=== PATIENT | female | born 1975 | race Caucasian/White ===

== ENCOUNTER 2017-01-25 21:27 | Emergency (ER) | payer BC ==
[2017-01-25] MEDS ORDERED: Sodium Chloride 0.9% 1,000 ML IV SCH (21:45)
[2017-01-25] MEDS ORDERED: Acetaminophen/Butalbital/Caffeine 325-50-40 MG Tab PO PRN (23:12)
[2017-01-25] MEDS ORDERED: Ondansetron 4 MG/2 ML SDV IVPUSH PRN (23:13)
[2017-01-25] MEDS ORDERED: Dexamethasone 4 MG/ML SDV IVPUSH ONE (23:15)
[2017-01-25] MEDS ORDERED: Diazepam 5 MG Tab PO ONE (23:19)
--- NOTE | 2017-01-26 00:17 | EDM.PDOC ---
ED HPI GENERAL MEDICAL PROBLEM - General Chief Complaint: Headache Stated Complaint: FEEL STRANGE, FATIGUE Time Seen by Provider: 01/25/17 21:45 Source of Information: Reports: Patient, Family History Limitations: Reports: No Limitations - History of Present Illness INITIAL COMMENTS - FREE TEXT/NARRATIVE: Patient is a 41 year old woman who has a history of Hemiplegic Migraines with neurological symptoms and 2 cerebral aneurysms that are being watched by her neurologists in [place]. Today she has developed a hemiplegic migraine with slurred speech and some weakness. She is supposed to come in for evaluation and treatment when these occur and that is why she is here. No fever or chills and no other complaints. Onset: Today Onset Date: 01/25/17 Onset Time: 18:00 Duration: Hour(s): (2), Getting Worse Location: Reports: Head Quality: Reports: Ache, Same as Previous Episode, Throbbing Severity: Severe Improves with: Reports: Other (Quiet and low light.) Worsens with: Reports: None Context: Reports: Other (History of migraines and cerebral aneurysms.) Associated Symptoms: Reports: No Other Symptoms headache Pain Score (Numeric/FACES): 10 - Related Data Allergies Allergy/AdvReac Type Severity Reaction Status Date / Time morphine Allergy Vomiting Verified 01/25/17 21:40 Penicillins Allergy Other Verified 01/25/17 21:40 tioconazole Allergy Other Verified 01/25/17 21:40 [From Monistat 1 (tioconazole)] venom-honey bee Allergy Airway Verified 01/25/17 21:40 [bee venom (honey bee)] Tightness Home Meds: Home Meds Aspirin [Children's Aspirin] 162 mg PO DAILY 01/04/14 [History] Topiramate [Topamax] 100 mg PO BID 01/04/14 [History] rOPINIRole HCl [Ropinirole HCl] 4 mg PO BEDTIME 01/04/14 [History] ALPRAZolam [Alprazolam] 0.5 mg PO DAILY PRN 11/11/15 [History] Furosemide 20 mg PO DAILY PRN 11/11/15 [History] Phentermine HCl 37.5 mg PO DAILY 11/11/15 [History] Naratriptan HCl [Amerge] 2.5 mg PO DAILY PRN 01/25/17 [History] Ondansetron [Zofran] 4 mg PO Q6H PRN 01/25/17 [History] metFORMIN [Glucophage] 500 mg PO BID 01/25/17 [History] Past Medical History HEENT History: Reports: Impaired Vision Respiratory History: Reports: Asthma Gastrointestinal History: Reports: Cholelithiasis [employer] History: Reports: Musculoskeletal History: Reports: Arthritis, Other (See Below) Other Musculoskeletal History: arthritis bilat knees Neurological History: Reports: Cerebral Aneurysms, Migraines, TIA Other Neuro History: TIA x 2 Psychiatric History: Reports: Anxiety, Bipolar, Dementia, PTSD Endocrine/Metabolic History: Reports: Diabetes, Type II, Obesity/BMI 30+ Other Endocrine/Metabolic History: borderline diabetic Hematologic History: Reports: Other (See Below) Other Hematologic History: fibrinogen disorder, plasmongeic activator inhibitor Oncologic (Cancer) History: Reports: Cervix, Uterine, Other (See Below) Other Oncologic History: CA gallbladder Dermatologic History: Reports: Other (See Below) Other Dermatologic History: 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 - Infectious Disease History Infectious Disease History: Reports: Chicken Pox, Influenza, Shingles - Past Surgical History HEENT Surgical History: Reports: Oral Surgery, Tonsillectomy GI Surgical History: Reports: Cholecystectomy, Hernia Repair/Other Female Surgical History: Reports: Breast Reduction, Hysterectomy, Other (See Below) Social & Family History - Family History Family Medical History: Unobtainable - Tobacco Use Smoking Status *Q: Current Every Day Smoker Years of Tobacco use: 30 Packs/Tins Daily: 0.5 - Caffeine Use Caffeine Use: Reports: Coffee, Tea - Alcohol Use Days Per Week of Alcohol Use: 0 - Recreational Drug Use Recreational Drug Use: No ED ROS GENERAL - Review of Systems Review Of Systems: See Below Constitutional: Reports: No Symptoms HEENT: Reports: Other (Slurred speech.) Respiratory: Reports: No Symptoms Cardiovascular: Reports: No Symptoms Endocrine: Reports: No Symptoms GI/Abdominal: Reports: No Symptoms : Reports: No Symptoms Musculoskeletal: Reports: No Symptoms Skin: Reports: No Symptoms Neurological: Reports: Trouble Speaking, Weakness Psychiatric: Reports: No Symptoms Hematologic/Lymphatic: Reports: No Symptoms Immunologic: Reports: No Symptoms - Physical Exam Exam: See Below Exam Limited By: No Limitations General Appearance: Alert, WD/WN, No Apparent Distress Eye Exam: Bilateral Eye: EOMI, Normal Fundi, Normal Inspection, PERRL Ears: Normal External Exam, Normal Canal, Hearing Grossly Normal, Normal TMs Nose: Normal Inspection, Normal Mucosa, No Blood Throat/Mouth: Normal Inspection, Normal Lips, Normal Teeth, Normal Gums, Normal Oropharynx, Normal Voice, No Airway Compromise Head Exam: Atraumatic, Normocephalic Neck: Normal Inspection, Supple, Non-Tender, Full Range of Motion Respiratory/Chest: No Respiratory Distress, Lungs Clear, Normal Breath Sounds, No Accessory Muscle Use, Chest Non-Tender Cardiovascular: Normal Peripheral Pulses, Regular Rate, Rhythm, No Edema, No Gallop, No JVD, No Murmur, No Rub GI/Abdominal: Normal Bowel Sounds, Soft, Non-Tender, No Organomegaly, No Distention, No Abnormal Bruit, No Mass Neuro Exam (Abbreviated): Alert DTR: 4+: Patella (R), Patella (L) Back Exam: Normal Inspection, Full Range of Motion, NT Extremities: Normal Inspection, Normal Range of Motion, Non-Tender, No Pedal Edema, Normal Capillary Refill Psychiatric: Normal Affect, Normal Mood Skin Exam: Warm, Dry, Intact, Normal Color, No Rash Course - Vital Signs Text/Narrative:: Uneventful ED course. 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 These quickly brought her pain from a 9/10 level to 4/10. She will go home with one 5 mg Valium to help her sleep if needed. She will continue all of her other medications and will follow up with [facility] as planned or prn if needed. Last Recorded V/S: Last Vital Signs Temp 36.5 C 01/25/17 21:27 Pulse 86 01/25/17 21:27 Resp 18 01/25/17 21:27 BP 135/64 01/25/17 21:27 Pulse Ox 98 01/25/17 21:27 - Orders/Labs/Meds Orders: Active Orders 24 hr Category Date Time Status Head wo Cont [CT] Stat Exams 01/25/17 21:43 Taken Acetaminophen/Butalbital/Caff [Fioricet 325-50-40 MG] Med 01/25/17 23:12 Active 2 tab PO Q6H PRN Ondansetron [Zofran] Med 01/25/17 23:13 Active 4 mg IVPUSH Q4H PRN Sodium Chloride 0.9% [Normal Saline] 1,000 ml Med 01/25/17 21:45 Active IV ASDIRECTED Medication Orders Acetaminophen/Butalbital/Caffeine (Fioricet 325-50-40 Mg) 2 tab PO Q6H PRN PRN Reason: Headache/Pain Last Admin: 01/25/17 23:44 Dose: 2 tab Sodium Chloride (Normal Saline) 1,000 mls @ 150 mls/hr IV ASDIRECTED SELMA Last Admin: 01/25/17 22:15 Dose: 150 mls/hr Ondansetron HCl (Zofran) 4 mg IVPUSH Q4H PRN PRN Reason: Nausea/Vomiting Last Admin: 01/25/17 23:40 Dose: 4 mg Labs: Laboratory Tests 01/25/17 01/25/17 01/25/17 Range/Units 21:50 21:50 21:50 WBC 7.3 (4.5-12.0) X10-3/uL RBC 4.62 (3.23-5.20) x10(6)uL Hgb 14.6 (11.5-15.5) g/dL Hct 42.1 (30.0-51.3) % MCV 91.2 (80-96) fL MCH 31.5 (27.7-33.6) pg MCHC 34.5 (32.2-35.4) g/dL RDW 12.5 (11.5-15.5) % Plt Count 238 (125-369) X10(3)uL MPV 7.2 L (7.4-10.4) fL Neut % (Auto) 69.4 (46-82) % Lymph % (Auto) 21.7 (13-37) % Robeson % (Auto) 5.8 (4-12) % Eos % (Auto) 3 (1.0-5.0) % Baso % (Auto) 0 (0-2) % Neut # (Auto) 5.1 (1.6-8.3) # Lymph # (Auto) 1.6 (0.6-5.0) # Robeson # (Auto) 0.4 (0.0-1.3) # Eos # (Auto) 0.2 (0.0-0.8) # Baso # (Auto) 0.0 (0.0-0.2) # PT 11.0 (8.7-11.1) INR 1.09 (0.89-1.13) Sodium 136 (135-145) mmol/L Potassium 3.7 (3.5-5.3) mmol/L Chloride 102 (100-110) mmol/L Carbon Dioxide 25 (23-29) mmol/L BUN 12 (5-20) mg/dL Creatinine 0.7 (0.6-1.3) mg/dL Est Cr Clr Drug Dosing 93.25 mL/min Estimated GFR (MDRD) > 60 (>60) BUN/Creatinine Ratio 17.1 (9-20) Glucose 143 H (80-116) mg/dL Calcium 9.1 (8.6-10.2) mg/dL Total Bilirubin 0.6 (0.1-1.3) mg/dL AST 18 (5-27) IU/L ALT 20 D (14-26) IU/L Alkaline Phosphatase 51 L (56-112) IU/L Total Protein 6.5 (6.0-8.0) g/dL Albumin 3.8 (3.5-5.2) g/dL Globulin 2.7 g/dL Albumin/Globulin Ratio 1.4 Meds: Medications Generic Name Dose Route Start Last Admin Trade Name Freq PRN Reason Stop Dose Admin Acetaminophen/Butalbital/Caffeine 2 tab 01/25/17 23:12 01/25/17 23:44 Fioricet 325-50-40 Mg PO 2 tab Q6H PRN Administration Headache/Pain Sodium Chloride 1,000 mls @ 150 mls/hr 01/25/17 21:45 01/25/17 22:15 Normal Saline IV 150 mls/hr ASDIRECTED SELAM Administration Ondansetron HCl 4 mg 01/25/17 23:13 01/25/17 23:40 Zofran IVPUSH 4 mg Q4H PRN Administration Nausea/Vomiting Discontinued Medications Generic Name Dose Route Start Last Admin Trade Name Freq PRN Reason Stop Dose Admin Dexamethasone 8 mg 01/25/17 23:15 01/25/17 23:36 Dexamethasone IVPUSH 01/25/17 23:16 8 mg ONETIME ONE Administration Diazepam 5 mg 01/25/17 23:01/25/17 23:40 Valium. PO 01/25/17 23:20 5 mg ONETIME ONE Administration Departure - Departure Time of Disposition: 00:21 Disposition: Home, Self-Care 01 Condition: Good Clinical Impression: Hemiplegic migraine - Discharge Information Referrals: Jessica Steel, PROFESS[employer] [Primary Care Provider] - - My Orders Last 24 Hours: My Active Orders 01/25/17 21:43 Head wo Cont [CT] Stat 01/25/17 21:45 Sodium Chloride 0.9% [Normal Saline] 1,000 ml IV ASDIRECTED 01/25/17 23:12 Acetaminophen/Butalbital/Caff [Fioricet 325-50-40 MG] 2 tab PO Q6H PRN 01/25/17 23:13 Ondansetron [Zofran] 4 mg IVPUSH Q4H PRN - Assessment/Plan Last 24 Hours: My Active Orders 01/25/17 21:43 Head wo Cont [CT] Stat 01/25/17 21:45 Sodium Chloride 0.9% [Normal Saline] 1,000 ml IV ASDIRECTED 01/25/17 23:12 Acetaminophen/Butalbital/Caff [Fioricet 325-50-40 MG] 2 tab PO Q6H PRN 01/25/17 23:13 Ondansetron [Zofran] 4 mg IVPUSH Q4H PRN
[2017-01-26] MEDS ORDERED: Diazepam 5 MG Tab ONE (00:22)
[2017-01-26] MEDS ORDERED: Diazepam 5 MG Tab PO PRN (00:24)
[2017-01-26 00:50] VITALS: BP 122/51
== END 2017-01-26 00:25 | disposition home or self-care (01) ==
LOC: FB.ED 21:27
DX: G43.409 Hemiplegic migraine, not intractable, without status migrainosus (principal); F17.210 Nicotine dependence, cigarettes, uncomplicated; E11.9 Type 2 diabetes mellitus without complications; J45.909 Unspecified asthma, uncomplicated; Z79.84 Long term (current) use of oral hypoglycemic drugs; Z79.82 Long term (current) use of aspirin; Z79.899 Other long term (current) drug therapy; Z88.0 Allergy status to penicillin; Z88.5 Allergy status to narcotic agent; Z91.030 Bee allergy status
CPT/HCPCS: 36415; 70450; 80053; 85025; 85610; 96361; 96374; 96375; 99284; A9270; J1100; J2405; J7040

== ENCOUNTER 2017-12-04 17:30 | Emergency (ER) | payer BC ==
--- NOTE | 2017-12-04 18:38 | EDM.PDOC ---
ED HPI GENERAL MEDICAL PROBLEM - General Chief Complaint: Lower Extremity Injury/Pain Stated Complaint: SWOLLEN FOOT Time Seen by Provider: 12/04/17 17:40 Source of Information: Reports: Patient History Limitations: Reports: No Limitations - History of Present Illness INITIAL COMMENTS - FREE TEXT/NARRATIVE: eMlissa comes into [facility] ED for inspection of a L foot injury that occurred 3 days ago when she turned her foot accidentally. There is residual pain and stiffness along the lateral margin of the midfoot. There is minor swelling. She has taken Tylenol for sxs relief. - Related Data Allergies Allergy/AdvReac Type Severity Reaction Status Date / Time morphine Allergy Vomiting Verified 12/04/17 17:53 Penicillins Allergy Other Verified 12/04/17 17:53 tioconazole Allergy Other Verified 12/04/17 17:53 [From Monistat 1 (tioconazole)] venom-honey bee Allergy Airway Verified 12/04/17 17:53 [bee venom (honey bee)] Tightness Home Meds: Home Meds Aspirin [Children's Aspirin] 162 mg PO DAILY 01/04/14 [History] rOPINIRole HCl [Ropinirole HCl] 4 mg PO BEDTIME 01/04/14 [History] ALPRAZolam [Alprazolam] 0.5 mg PO DAILY PRN 11/11/15 [History] Furosemide 20 mg PO DAILY PRN 11/11/15 [History] Ondansetron [Zofran] 4 mg PO Q6H PRN 01/25/17 [History] metFORMIN [Glucophage] 500 mg PO BID 01/25/17 [History] Ketorolac [Toradol] 60 mg IM ASDIRECTED PRN 12/04/17 [History] Liraglutide [Victoza] 0.6 mg SQ DAILY 12/04/17 [History] Past Medical History HEENT History: Reports: Impaired Vision Respiratory History: Reports: Asthma Gastrointestinal History: Reports: Cholelithiasis [employer] History: Reports: Musculoskeletal History: Reports: Arthritis, Other (See Below) Other Musculoskeletal History: arthritis bilat knees Neurological History: Reports: Cerebral Aneurysms, Migraines, TIA Other Neuro History: TIA x 2 Psychiatric History: Reports: Anxiety, Bipolar, Dementia, PTSD Endocrine/Metabolic History: Reports: Diabetes, Type II, Obesity/BMI 30+ Other Endocrine/Metabolic History: borderline diabetic Hematologic History: Reports: Other (See Below) Other Hematologic History: fibrinogen disorder, plasmongeic activator inhibitor Oncologic (Cancer) History: Reports: Cervix, Uterine, Other (See Below) Other Oncologic History: CA gallbladder Dermatologic History: Reports: Other (See Below) Other Dermatologic History: 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 ED EXAM, GENERAL - Physical Exam Exam: See Below Exam Limited By: No Limitations General Appearance: Alert, WD/WN, No Apparent Distress, Obese Head: Atraumatic, Normocephalic Neck: Normal Inspection, Supple, Non-Tender Respiratory/Chest: Lungs Clear Cardiovascular: Regular Rate, Rhythm Back Exam: Normal Inspection Extremities: Limited Range of Motion (L midfoot along lateral margin with some tenderness and minor swelling, no discoloration) Neurological: Alert, Oriented, CN II-XII Intact, Normal Cognition Psychiatric: Normal Affect, Normal Mood Skin Exam: Warm, Dry, Intact Lymphatic: No Adenopathy Course - Vital Signs Text/Narrative:: I reviewed x rays of L foot, no fx deformity seen. - Orders/Labs/Meds Orders: Active Orders 24 hr Category Date Time Status Foot Comp Min 3V Lt [CR] Stat Exams 12/04/17 17:41 Ordered Departure - Departure Time of Disposition: 18:05 Disposition: Home, Self-Care 01 Condition: Fair Clinical Impression: Sprain of left foot Qualifiers: Encounter type: initial encounter Qualified Code(s): S93.602A - Unspecified sprain of left foot, initial encounter - Discharge Information *PRESCRIPTION DRUG MONITORING PROGRAM REVIEWED*: Not Applicable *COPY OF PRESCRIPTION DRUG MONITORING REPORT IN PATIENT SIRISHA: Not Applicable Instructions: Foot Sprain, Elastic Bandage and RICE Referrals: Jessica Steel NP [Primary Care Provider] - Forms: ED Department Discharge Care Plan Goals: FOLLOW UP WITH REGULAR - Problem List & Annotations (1) Sprain of left foot SNOMED Code(s): 11435394 Code(s): S93.602A - UNSPECIFIED SPRAIN OF LEFT FOOT, INITIAL ENCOUNTER Status: Acute Current Visit: Yes Annotation/Comment:: She may wrap the L foot for comfort, RICE, analgesic of choice, and a cane if needed for heel wt bearing. Qualifiers: Encounter type: initial encounter Qualified Code(s): S93.602A - Unspecified sprain of left foot, initial encounter - Problem List Review Problem List Initiated/Reviewed/Updated: Yes - My Orders Last 24 Hours: My Active Orders 12/04/17 17:41 Foot Comp Min 3V Lt [CR] Stat - Assessment/Plan Last 24 Hours: My Active Orders 12/04/17 17:41 Foot Comp Min 3V Lt [CR] Stat Plan: Follow up with PCP if needed.
--- NOTE | 2017-12-06 15:06 | CR ---
INDICATION: Injury. Pain and swelling. LEFT FOOT, THREE VIEWS: FINDINGS: No comparison imaging. As visualized, no fracture or dislocation are shown. IMPRESSION: Negative study. If symptoms persist, consider either followup radiographs or, if necessary, MRI for further evaluation. CARLOSD
== END 2017-12-04 18:30 | disposition home or self-care (01) ==
LOC: FB.ED 17:30
DX: S93.602A Unspecified sprain of left foot, initial encounter (principal); E11.9 Type 2 diabetes mellitus without complications; E66.9 Obesity, unspecified; Z88.0 Allergy status to penicillin; Z88.1 Allergy status to other antibiotic agents; Z79.82 Long term (current) use of aspirin; Z79.899 Other long term (current) drug therapy; Z79.84 Long term (current) use of oral hypoglycemic drugs; X50.9XXA Other and unspecified overexertion or strenuous movements or postures, initial encounter
CPT/HCPCS: 73630-LT; 99283

== ENCOUNTER 2018-05-27 08:46 | Emergency (ER) | payer BC ==
[2018-05-27] MEDS ORDERED: Sodium Chloride 0.9% 10 ML Syringe FLUSH PRN (09:13)
[2018-05-27] MEDS ORDERED: HYDROmorphone 2 MG/ML SDV IVPUSH ONE ×2 (09:14→10:23)
[2018-05-27] MEDS ORDERED: Ondansetron 4 MG/2 ML SDV IVPUSH ONE (09:15)
[2018-05-27] MEDS ORDERED: Pantoprazole 40 MG Vial IVPUSH ONE (09:15)
[2018-05-27] MEDS ORDERED: Sodium Chloride 0.9% 1,000 ML IV ONE (09:15)
--- NOTE | 2018-05-27 09:22 | EDM.PDOC ---
ED HPI GENERAL MEDICAL PROBLEM - General Chief Complaint: Abdominal Pain Stated Complaint: STOMACH PAIN Time Seen by Provider: 05/27/18 09:18 Source of Information: Reports: Patient History Limitations: Reports: No Limitations - History of Present Illness INITIAL COMMENTS - FREE TEXT/NARRATIVE: Presents with generalized abdominal pain, onset 8 hours ago associated with N/ V. Has not had a BM in 1 week. History of SBO @ 1 year ago. Previous surgical history consists of 14 hernia repairs, hysterectomy, cholecystectomy, tubal ligation and bladder repair. 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) abdomen Pain Score (Numeric/FACES): 10 - Related Data Allergies Allergy/AdvReac Type Severity Reaction Status Date / Time morphine Allergy Vomiting Verified 05/27/18 09:10 Penicillins Allergy Other Verified 05/27/18 09:10 tioconazole Allergy Other Verified 05/27/18 09:10 [From Monistat 1 (tioconazole)] venom-honey bee Allergy Airway Verified 05/27/18 09:10 [bee venom (honey bee)] Tightness Home Meds: Home Meds Aspirin [Children's Aspirin] 162 mg PO DAILY 01/04/14 [History] rOPINIRole HCl [Ropinirole HCl] 4 mg PO BEDTIME 01/04/14 [History] ALPRAZolam [Alprazolam] 0.5 mg PO DAILY PRN 11/11/15 [History] Furosemide 20 mg PO DAILY PRN 11/11/15 [History] Ondansetron [Zofran] 4 mg PO Q6H PRN 01/25/17 [History] metFORMIN [Glucophage] 500 mg PO BID 01/25/17 [History] Ketorolac [Toradol] 60 mg IM ASDIRECTED PRN 12/04/17 [History] Liraglutide [Victoza] 0.6 mg SQ DAILY 12/04/17 [History] Erenumab-Aooe [Aimovig Autoinjector (2 Pack)] 140 mg IM Q30D 02/08/18 [History] Past Medical History HEENT History: Reports: Impaired Vision Cardiovascular History: Denies: CAD Respiratory History: Reports: Asthma Gastrointestinal History: Reports: Bowel Obstruction Musculoskeletal History: Reports: Arthritis, Other (See Below) Other Musculoskeletal History: arthritis bilat knees Neurological History: Reports: Cerebral Aneurysms, Migraines, TIA Other Neuro History: TIA x 2 Psychiatric History: Reports: Anxiety, Bipolar, Dementia, PTSD Endocrine/Metabolic History: Reports: Diabetes, Type II, Obesity/BMI 30+ Other Endocrine/Metabolic History: borderline diabetic Hematologic History: Reports: Other (See Below) Other Hematologic History: fibrinogen disorder, plasmongeic activator inhibitor Oncologic (Cancer) History: Reports: Cervix, Uterine, Other (See Below) Other Oncologic History: CA gallbladder Dermatologic History: Reports: Other (See Below) 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 Denies: Appendectomy Female Surgical History: Reports: Breast Reduction, Hysterectomy, Tubal Ligation Social & Family History - Family History Family Medical History: Unobtainable - Tobacco Use Smoking Status *Q: Current Every Day Smoker Tobacco Use Within Last Twelve Months: Cigarettes - Caffeine Use Caffeine Use: Reports: Coffee, Tea - Alcohol Use Alcohol Use History: No ED ROS GENERAL - Review of Systems Review Of Systems: ROS reveals no pertinent complaints other than HPI. ED EXAM, GI/ABD - Physical Exam Exam: See Below Exam Limited By: No Limitations General Appearance: Alert, WD/WN, No Apparent Distress Ears: Normal External Exam Nose: Normal Inspection Throat/Mouth: No Airway Compromise Head: Atraumatic, Normocephalic Neck: Supple Respiratory/Chest: No Respiratory Distress, Lungs Clear, Normal Breath Sounds Cardiovascular: Regular Rate, Rhythm, No Murmur GI/Abdominal Exam: No Distention, Tender (moderate generalized), Abnormal Bowel Sounds (hypoactive) Back Exam: Full Range of Motion Extremities: Normal Range of Motion Neurological: Alert, No Motor/Sensory Deficits Psychiatric: Normal Affect Skin Exam: Warm, Dry, Intact Course - Vital Signs Last Recorded V/S: Last Vital Signs Temp 36.9 C 05/27/18 08:50 Pulse 82 05/27/18 08:50 Resp 16 05/27/18 08:50 BP 150/68 H 05/27/18 08:50 Pulse Ox 95 05/27/18 08:50 - Orders/Labs/Meds Orders: Active Orders 24 hr Category Date Time Status Abdomen Pelvis w Cont [CT] Stat Exams 05/27/18 09:16 Taken UA W/MICROSCOPIC [URIN] Stat Lab 05/27/18 10:27 Received Diatrizoate Jessie/Diatrizoate Na [Gastrografin 37%] Med 05/27/18 10:15 Active 30 ml PO . DIRECTED Sodium Chloride 0.9% [Saline Flush] Med 05/27/18 09:13 Active 10 ml FLUSH ASDIRECTED PRN Saline Lock Insert [OM.PC] Routine Oth 05/27/18 09:13 Ordered Medication Orders Diatrizoate Meglum/Diatrizoate Sod (Gastrografin 37%) 30 ml PO . DIRECTED SELMA Last Admin: 05/27/18 10:45 Dose: 30 ml Sodium Chloride (Saline Flush) 10 ml FLUSH ASDIRECTED PRN PRN Reason: Keep Vein Open Last Admin: 05/27/18 09:30 Dose: 10 ml Labs: Laboratory Tests 05/27/18 05/27/18 05/27/18 Range/Units 09:51 09:51 09:51 WBC 11.8 (4.5-12.0) X10-3/uL RBC 5.21 H (3.23-5.20) x10(6)uL Hgb 16.9 H (11.5-15.5) g/dL Hct 48.1 (30.0-51.3) % MCV 92.3 (80-96) fL MCH 32.3 (27.7-33.6) pg MCHC 35.0 (32.2-35.4) g/dL RDW 12.0 (11.5-15.5) % Plt Count 224 (125-369) X10(3)uL MPV 7.5 (7.4-10.4) fL Add Manual Diff Yes Neutrophils % (Manual) 83 H (46-82) % Lymphocytes % (Manual) 10 L (13-37) % Monocytes % (Manual) 7 (4-12) % PT 10.2 (8.7-11.1) INR 1.05 (0.89-1.13) Sodium 137 (135-145) mmol/L Potassium 4.6 (3.5-5.3) mmol/L Chloride 101 (100-110) mmol/L Carbon Dioxide 27 (21-32) mmol/L BUN 14 (7-18) mg/dL Creatinine 0.7 (0.55-1.02) mg/dL Est Cr Clr Drug Dosing TNP Estimated GFR (MDRD) > 60 (>60) BUN/Creatinine Ratio 20.0 (9-20) Glucose 161 H (80-116) mg/dL Calcium 9.1 (8.6-10.2) mg/dL Total Bilirubin 0.5 (0.1-1.3) mg/dL AST 12 (5-25) IU/L ALT 26 (12-36) U/L Alkaline Phosphatase 68 (56-112) IU/L Total Protein 6.8 (6.0-8.0) g/dL Albumin 3.6 (3.5-5.2) g/dL Globulin 3.2 g/dL Albumin/Globulin Ratio 1.1 Amylase (25-115) U/L 05/27/18 Range/Units 09:51 WBC (4.5-12.0) X10-3/uL RBC (3.23-5.20) x10(6)uL Hgb (11.5-15.5) g/dL Hct (30.0-51.3) % MCV (80-96) fL MCH (27.7-33.6) pg MCHC (32.2-35.4) g/dL RDW (11.5-15.5) % Plt Count (125-369) X10(3)uL MPV (7.4-10.4) fL Add Manual Diff Neutrophils % (Manual) (46-82) % Lymphocytes % (Manual) (13-37) % Monocytes % (Manual) (4-12) % PT (8.7-11.1) INR (0.89-1.13) Sodium (135-145) mmol/L Potassium (3.5-5.3) mmol/L Chloride (100-110) mmol/L Carbon Dioxide (21-32) mmol/L BUN (7-18) mg/dL Creatinine (0.55-1.02) mg/dL Est Cr Clr Drug Dosing Estimated GFR (MDRD) (>60) BUN/Creatinine Ratio (9-20) Glucose (80-116) mg/dL Calcium (8.6-10.2) mg/dL Total Bilirubin (0.1-1.3) mg/dL AST (5-25) IU/L ALT (12-36) U/L Alkaline Phosphatase (56-112) IU/L Total Protein (6.0-8.0) g/dL Albumin (3.5-5.2) g/dL Globulin g/dL Albumin/Globulin Ratio Amylase 16 L (25-115) U/L Meds: Medications Generic Name Dose Route Start Last Admin Trade Name Freq PRN Reason Stop Dose Admin Diatrizoate Meglum/Diatrizoate Sod 30 ml 05/27/18 10:15 05/27/18 10:45 Gastrografin 37% PO 30 ml . DIRECTED SELMA Administration Sodium Chloride 10 ml 05/27/18 09:13 05/27/18 09:30 Saline Flush FLUSH 10 ml ASDIRECTED PRN Administration Keep Vein Open Discontinued Medications Generic Name Dose Route Start Last Admin Trade Name Freq PRN Reason Stop Dose Admin Hydromorphone HCl 0.5 mg 05/27/18 09:14 05/27/18 09:39 Dilaudid IVPUSH 05/27/18 09:15 0.5 mg ONETIME ONE Administration Hydromorphone HCl 0.5 mg 05/27/18 10:23 Dilaudid IVPUSH 05/27/18 10:24 ONETIME ONE Sodium Chloride 1,000 mls @ 999 mls/hr 05/27/18 09:15 05/27/18 09:30 Normal Saline IV 05/27/18 10:15 999 mls/hr .BOLUS ONE Administration Iopamidol 150 ml 05/27/18 10:08 05/27/18 10:46 Isovue-370 (76%) IV 05/27/18 10:09 128 ml ONETIME ONE Administration Ondansetron HCl 4 mg 05/27/18 09:15 05/27/18 09:36 Zofran IVPUSH 05/27/18 09:16 4 mg ONETIME ONE Administration Pantoprazole Sodium 40 mg 05/27/18 09:15 05/27/18 09:38 Protonix Iv IVPUSH 05/27/18 09:16 40 mg ONETIME ONE Administration - Radiology Interpretation Free Text/Narrative:: CT Abd/Pelvis w/ IV and Oral contrast: mildly dilated small bowel with air fluid levels, possible early partial small bowel obstruction (verbal report from Dr. Martinez, radiologist) - Re-Assessments/Exams Free Text/Narrative Re-Assessment/Exam: 05/27/18 11:21 Pain and nausea have improved. Case discussed with Dr. Unger, recommends transfer to [facility] as prior surgeries were performed there. Dr. Choi accepts transfer to [facility]. Departure - Departure Time of Disposition: 11:23 Disposition: DC/Tfer to Acute Hospital 02 Condition: Good Clinical Impression: Partial bowel obstruction Qualifiers: Intestinal obstruction type: obstruction due to adhesions Qualified Code(s): K56.51 - Intestinal adhesions [bands], with partial obstruction - Discharge Information *PRESCRIPTION DRUG MONITORING PROGRAM REVIEWED*: No *COPY OF PRESCRIPTION DRUG MONITORING REPORT IN PATIENT SIRISHA: Not Applicable Referrals: Jessica Steel HOSPITALITY RECRUITER [Primary Care Provider] - Forms: ED Department Discharge - My Orders Last 24 Hours: My Active Orders 05/27/18 09:13 Sodium Chloride 0.9% [Saline Flush] 10 ml FLUSH ASDIRECTED PRN Saline Lock Insert [OM.PC] Routine 05/27/18 09:16 Abdomen Pelvis w Cont [CT] Stat 05/27/18 10:15 Diatrizoate Jessie/Diatrizoate Na [Gastrografin 37%] 30 ml PO . DIRECTED 05/27/18 10:27 UA W/MICROSCOPIC [URIN] Stat - Assessment/Plan Last 24 Hours: My Active Orders 05/27/18 09:13 Sodium Chloride 0.9% [Saline Flush] 10 ml FLUSH ASDIRECTED PRN Saline Lock Insert [OM.PC] Routine 05/27/18 09:16 Abdomen Pelvis w Cont [CT] Stat 05/27/18 10:15 Diatrizoate Jessie/Diatrizoate Na [Gastrografin 37%] 30 ml PO . DIRECTED 05/27/18 10:27 UA W/MICROSCOPIC [URIN] Stat
[2018-05-27] MEDS ORDERED: Iopamidol 755 MG/ML 150 ML Bottle IV ONE (10:08)
[2018-05-27] MEDS ORDERED: Diatrizoate Meglumine/Diatrizoate Sodium 37% 30 ML Bottle PO SCH (10:15)
[2018-05-27] MEDS ORDERED: Sodium Chloride 0.9% 1,000 ML IV SCH (11:30)
--- NOTE | 2018-05-27 14:02 | CT ---
INDICATION: Abdominal pain. CT ABDOMEN AND PELVIS WITH CONTRAST: Spiral 3.75 mm axial sections were obtained through the abdomen and pelvis with oral and IV contrast (128 mL Isovue 370 at 3 mL/second), with sagittal and coronal reconstructions, 05/27/18 , and compared with 11/11/15. Total exam DLP = 1,964.37 mGy-cm. There is some minimal scarring at the lung bases, especially on the left, but no definite active infiltrate or effusion. The heart appears slightly prominent in size. No pericardial effusion was seen. The liver appears somewhat low in the density, suggesting the possibility of a mild degree of fatty liver. No focal liver lesions were identified. The gallbladder is absent, compatible with history of its removal. The uterus is absent, compatible with history of its removal. The urinary bladder is unremarkable. Degenerative changes and disk disease are suggested, minimal at L4-5, mild at L5 -S1. The spleen and pancreas appear normal. The adrenal glands and kidneys appear normal. No retroperitoneal mass was seen. There is some fat stranding in the abdomen, which may be on the basis of previous multiple surgeries in this patient with evidence of multiple herniorrhaphies. There is a new hernia not seen on the previous study, ventrolaterally on the left, with a large opening and no evidence of obstruction to the bowel loops included in that hernia. The hernia dips down into the lowermost pelvis and begins at the upper middle pelvis on the left. The opening into the abdomen is approximately 5 cm with the maximum transverse diameter of the hernia approximately 12.7 cm. Its anterior-posterior depth is approximately 4 cm. In the mid to right upper through lower abdomen and pelvis, there are multiple loops of dilated small bowel, which extend down into the pelvis, where there is appearance of some thickening of the wall and some possible contraction or possibly narrowing, which could be on the basis of adhesions. A partial obstruction is difficult to exclude in that area. There is a somewhat similar appearance noted on the previous CT scan from 2016 in that area also. Gas and stool is noted in the colon, including into the rectum. The appendix was not definitely visualized. IMPRESSION: 1. The possibility of a partially obstructive small bowel obstruction of mechanical nature cannot be excluded at the right lower quadrant, likely on the basis of an adhesion. There is some thickened wall of one bowel loop in that area. This likely is an early or partial mechanical obstructive process. The possibility of gastroenteritis is felt to be somewhat less likely with the patients history. Gas and stool is noted throughout the colon, including into the rectum. 2. Post hysterectomy. 3. Post cholecystectomy. 4. Probable fatty liver. 5. Ventral left lateral hernia, new since 2016, with multiple hernia repairs. 6. Sigmoid diverticulosis without definite evidence of diverticulitis. 7. Degenerative changes and disk disease are suggested, minimal at L4-5, mild at L5-S1. Report was given in person to Dr. Wagner soon after the examination was completed on 05/27/18. [facility]
[2018-05-27 19:52] VITALS: BP 156/68
== END 2018-05-27 11:45 ==
LOC: SUPCPDRO 08:46 → FB.ED 08:46
DX: K56.51 Intestinal adhesions [bands], with partial obstruction (principal); J45.909 Unspecified asthma, uncomplicated; I25.10 Atherosclerotic heart disease of native coronary artery without angina pectoris; F41.9 Anxiety disorder, unspecified; F31.9 Bipolar disorder, unspecified; E11.9 Type 2 diabetes mellitus without complications; F17.210 Nicotine dependence, cigarettes, uncomplicated; Z88.8 Allergy status to other drugs, medicaments and biological substances; Z88.5 Allergy status to narcotic agent; Z88.0 Allergy status to penicillin; Z79.82 Long term (current) use of aspirin; Z79.899 Other long term (current) drug therapy
CPT/HCPCS: 36415; 74177; 80053; 81001; 82150; 85025; 85610; 96361; 96374; 96375; 96376; 99285; C9113; J1170; J2405; J7030; Q9963; Q9967

== ENCOUNTER 2018-08-05 08:24 | Emergency (ER) | payer BC ==
--- NOTE | 2018-08-05 08:32 | EDM.PDOC ---
ED HPI GENERAL MEDICAL PROBLEM - General Stated Complaint: HEAD PAIN Time Seen by Provider: 08/05/18 08:24 Source of Information: Reports: Patient, Family () History Limitations: Reports: No Limitations - History of Present Illness INITIAL COMMENTS - FREE TEXT/NARRATIVE: 43 y.o.w.f -smoker- with a H/O 3 brain aneurysm came to the ED with her due to the worst headache ever, located at her left forehead with nausea, and C/ P, no vomiting. She says she had tingling of her upper and lower extremities as well. Pt was prescribed Gabapentin but did not picking supervisor her meds as of yet. Pt took Toradol IM and Imitrex at home without improvement. Pt denies trauma. No other acute med issues. BP 152/85 RR 18 Pulse ox 99 Pulse 88 Temp 36.8 Onset Date: 08/05/18 Onset Time: 06:00 Duration: Hour(s):, Intermittent Location: Reports: Chest, Abdomen Quality: Reports: Other (tingeling upper and lower extremities. 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 She did not picking supervisor the meds yet. ) headache Pain Score (Numeric/FACES): 10 - Related Data Allergies Allergy/AdvReac Type Severity Reaction Status Date / Time morphine Allergy Vomiting Verified 05/27/18 09:10 Penicillins Allergy Other Verified 05/27/18 09:10 tioconazole Allergy Other Verified 05/27/18 09:10 [From Monistat 1 (tioconazole)] venom-honey bee Allergy Airway Verified 05/27/18 09:10 [bee venom (honey bee)] Tightness Home Meds: Home Meds Aspirin [Children's Aspirin] 162 mg PO DAILY 01/04/14 [History] rOPINIRole HCl [Ropinirole HCl] 4 mg PO BEDTIME 01/04/14 [History] ALPRAZolam [Alprazolam] 0.5 mg PO DAILY PRN 11/11/15 [History] Furosemide 20 mg PO DAILY PRN 11/11/15 [History] Ondansetron [Zofran] 4 mg PO Q6H PRN 01/25/17 [History] metFORMIN [Glucophage] 500 mg PO BID 01/25/17 [History] Ketorolac [Toradol] 60 mg IM ASDIRECTED PRN 12/04/17 [History] Liraglutide [Victoza] 0.6 mg SQ DAILY 12/04/17 [History] Erenumab-Aooe [Aimovig Autoinjector] 140 mg IM Q30D 02/08/18 [History] Venlafaxine HCl [Venlafaxine ER] 37.5 mg PO DAILY 08/05/18 [History] Past Medical History HEENT History: Reports: Impaired Vision Respiratory History: Reports: Asthma Gastrointestinal History: Reports: Bowel Obstruction 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: Musculoskeletal History: Reports: Arthritis, Other (See Below) Other Musculoskeletal History: arthritis bilat knees Neurological History: Reports: Cerebral Aneurysms, Migraines, TIA Other Neuro History: TIA x 2 Psychiatric History: Reports: Anxiety, Bipolar, Dementia, PTSD Endocrine/Metabolic History: Reports: Diabetes, Type II, Obesity/BMI 30+ Other Endocrine/Metabolic History: borderline diabetic Hematologic History: Reports: Other (See Below) Other Hematologic History: fibrinogen disorder, plasmongeic activator inhibitor Oncologic (Cancer) History: Reports: Cervix, Uterine, Other (See Below) Other Oncologic History: CA gallbladder Dermatologic History: Reports: Other (See Below) 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 Denies: Appendectomy Female Surgical History: Reports: Breast Reduction, Hysterectomy, Tubal Ligation Social & Family History - Family History Family Medical History: Unobtainable - Caffeine Use Caffeine Use: Reports: Coffee, Tea ED ROS GENERAL - Review of Systems Review Of Systems: See Below Constitutional: Reports: No Symptoms HEENT: Reports: No Symptoms Respiratory: Reports: No Symptoms Cardiovascular: Reports: No Symptoms Endocrine: Reports: No Symptoms GI/Abdominal: Reports: Abdominal Pain (epigastric) : Reports: No Symptoms Musculoskeletal: Reports: No Symptoms Skin: Reports: No Symptoms Neurological: Reports: No Symptoms Psychiatric: Reports: No Symptoms Hematologic/Lymphatic: Reports: No Symptoms Immunologic: Reports: No Symptoms - Physical Exam Exam: See Below Exam Limited By: No Limitations General Appearance: Alert, WD/WN, Obese Eye Exam: Bilateral Eye: Normal Inspection Ears: Normal External Exam Nose: Normal Inspection Throat/Mouth: Normal Inspection Head Exam: Atraumatic, Normocephalic Neck: Normal Inspection, Supple Respiratory/Chest: Rhonchi, Wheezing Cardiovascular: Normal Peripheral Pulses, Regular Rate, Rhythm, No Edema GI/Abdominal: Normal Bowel Sounds, Soft, Tender (epigastric tenderness) (Female) Exam: Deferred Rectal (Female) Exam: Deferred Neuro Exam (Abbreviated): Alert, Oriented, CN II-XII Intact, Normal Cognition, Normal Gait DTR: 1+: Tricep (R) Back Exam: Normal Inspection, Full Range of Motion Extremities: Normal Inspection, Normal Range of Motion, Non-Tender, Normal Capillary Refill Psychiatric: Normal Affect, Normal Mood Skin Exam: Warm, Dry, Intact, Normal Color, No Rash EKG INTERPRETATION EKG Date: 08/05/18 Time: 09:20 Rhythm: NSR Rate (Beats/Min): 48 Harts: Normal P-Wave: Present QRS: Normal ST-T: Normal QT: Normal Comparison: NA - No Prior EKG Course - Vital Signs Text/Narrative:: 43 y.o.w.f -smoker- with a H/O 3 brain aneurysm came to the ED with her due to the worst headache ever, located at her left forehead with nausea, and C/ P, no vomiting. She says she had tingling of her upper and lower extremities as well. Pt was prescribed Gabapentin but did not picking supervisor her meds as of yet. Pt took Toradol IM and Imitrex at home without improvement. Pt denies trauma. No other acute med issues. BP 152/85 RR 18 Pulse ox 99 Pulse 88 Temp 36.8 PE: Obese 43 y.o.w.f c/o H/A, Nause and SOB. However, pt does not appear in discomfort. Imaging: CT head: NAD as per RAD Labs: CBC, BMP and Troponin neg except: Glc 132 HGB 16. Impression: Asthma, Gastritis, Migraine H/A, C/P Tx: Imitrex SQ, Zofran, Duoneb, ASA, Dilaudid. Reexam: Pt was on phone a lot, while here in the ED, did not appear in discomfort, obviously. After tx, pt requested to be discharged. Plan: D/C with instructions Last Recorded V/S: Last Vital Signs Temp 36.7 C 08/05/18 10:20 Pulse 80 08/05/18 10:20 Resp 17 08/05/18 10:20 BP 136/75 08/05/18 10:20 Pulse Ox 95 08/05/18 10:20 - Orders/Labs/Meds Orders: Active Orders 24 hr Category Date Time Status EKG Documentation Completion [RC] ASDIRECTED Care 08/05/18 09:15 Active RT Aerosol Therapy [RC] ASDIRECTED Care 08/05/18 09:51 Active EKG 12 Lead [EK] Routine Ther 08/05/18 09:15 Ordered Labs: Laboratory Tests 08/05/18 08/05/18 08/05/18 Range/Units 08:55 08:55 08:55 WBC 8.2 (4.5-12.0) X10-3/uL RBC 4.86 (3.23-5.20) x10(6)uL Hgb 16.0 H (11.5-15.5) g/dL Hct 44.7 (30.0-51.3) % MCV 91.9 (80-96) fL MCH 33.0 (27.7-33.6) pg MCHC 35.9 H (32.2-35.4) g/dL RDW 12.2 (11.5-15.5) % Plt Count 207 (125-369) X10(3)uL MPV 7.1 L (7.4-10.4) fL Neut % (Auto) 73.8 (46-82) % Lymph % (Auto) 21.1 (13-37) % [place] % (Auto) 4.9 (4-12) % Eos % (Auto) 0 L (1.0-5.0) % Baso % (Auto) 0 (0-2) % Neut # (Auto) 6.1 (1.6-8.3) # Lymph # (Auto) 1.7 (0.6-5.0) # [place] # (Auto) 0.4 (0.0-1.3) # Eos # (Auto) 0.0 (0.0-0.8) # Baso # (Auto) 0.0 (0.0-0.2) # Sodium 137 (135-145) mmol/L Potassium 4.3 (3.5-5.3) mmol/L Chloride 101 (100-110) mmol/L Carbon Dioxide 26 (21-32) mmol/L BUN 12 (7-18) mg/dL Creatinine 0.6 (0.55-1.02) mg/dL Est Cr Clr Drug Dosing 106.54 mL/min Estimated GFR (MDRD) > 60 (>60) BUN/Creatinine Ratio 20.0 (9-20) Glucose 132 H (80-116) mg/dL Calcium 8.9 (8.6-10.2) mg/dL Troponin I < 0.017 L (<0.017-0.056) ng/mL Meds: Medications Discontinued Medications Generic Name Dose Route Start Last Admin Trade Name Freq PRN Reason Stop Dose Admin Albuterol/Ipratropium 3 ml 08/05/18 09:50 08/05/18 09:55 Duoneb 3.0-0.5 Mg/3 Ml NEB 08/05/18 09:51 3 ml ONETIME ONE Administration Aspirin 324 mg 08/05/18 09:18 08/05/18 09:18 Aspirin PO 08/05/18 09:19 324 mg ONETIME ONE Administration Al Hydroxide/Mg Hydroxide 15 0 ml 08/05/18 09:50 08/05/18 09:55 ml/ Lidocaine HCl 15 ml PO 08/05/18 09:51 30 ml ONETIME ONE Administration Hydromorphone HCl 0.5 mg 08/05/18 09:50 08/05/18 09:55 Dilaudid IM 08/05/18 09:51 0.5 mg ONETIME ONE Administration Ondansetron HCl 8 mg 08/05/18 09:47 08/05/18 09:51 Zofran Odt PO 08/05/18 09:48 8 mg ONETIME ONE Administration Sumatriptan Succinate 6 mg 08/05/18 08:42 08/05/18 08:53 Imitrex SUBCUT 08/05/18 08:43 Not Given ONETIME ONE Departure - Departure Time of Disposition: 10:22 Disposition: Home, Self-Care 01 Condition: Good Clinical Impression: Gastritis, Asthma Headache Qualifiers: Headache type: tension-type Headache chronicity pattern: unspecified pattern Intractability: not intractable Qualified Code(s): G44.209 - Tension-type headache, unspecified, not intractable - Discharge Information Instructions: Gastritis, Adult, Liet-yc-Ulin, Migraine Headache, [id number], Asthma, Adult, [id number] Referrals: Jessica Steel NP [Primary Care Provider] - Forms: ED Department Discharge Additional Instructions: Please continue your current meds, please f/u, come back if your symptoms get worse acutely - My Orders Last 24 Hours: My Active Orders 08/05/18 09:15 EKG Documentation Completion [RC] ASDIRECTED EKG 12 Lead [EK] Routine 08/05/18 09:51 RT Aerosol Therapy [RC] ASDIRECTED - Assessment/Plan Last 24 Hours: My Active Orders 08/05/18 09:15 EKG Documentation Completion [RC] ASDIRECTED EKG 12 Lead [EK] Routine 08/05/18 09:51 RT Aerosol Therapy [RC] ASDIRECTED
[2018-08-05] MEDS ORDERED: SUMAtriptan 6 MG/0.5 ML SDV SUBCUT ONE (08:42)
[2018-08-05] MEDS ORDERED: Aspirin 81 MG Tab.Chew PO ONE (09:18)
[2018-08-05] MEDS ORDERED: Ondansetron 8 MG Tab.DIS PO ONE (09:47)
[2018-08-05] MEDS ORDERED: Albuterol/Ipratropium 3.0-0.5 MG/3 ML Neb Soln NEB ONE (09:50)
[2018-08-05] MEDS ORDERED: HYDROmorphone 2 MG/ML SDV IM ONE (09:50)
[2018-08-05] MEDS ORDERED: Alum Hydroxide/Mag Hydroxide 15 ML, Lidocaine 2% 15 ML PO ONE ×2 (09:50)
[2018-08-05 10:31] VITALS: BP 136/75
--- NOTE | 2018-08-05 11:07 | CT ---
INDICATION: Worst headache ever right temporal area this a.m. CT HEAD WITHOUT CONTRAST: Spiral examination of the brain axially with sagittal and coronal reconstructions was obtained 08/05/18 and compared with 04/26. Total exam DLP = 1244.99 mGy-cm. There appears to be some minimal calcification in the left vertebral artery. This calcification appears to be slightly increased compared with 02/07/18. Otherwise no significant interval change is noted with a retention cyst at the base of the right maxillary antrum and also one in the left sphenoidal air cell , with the paranasal sinuses and mastoid air cells well aerated otherwise. No cranial abnormality was suggested. No shift of midline structures, ventricular abnormalities or other abnormal areas of density were identified--no bleeding site or hematoma was seen. IMPRESSION: 1. There appears to be some minimal calcification in the wall of the left vertebral artery which appears slightly increased compared with the previous study. 2. No acute intracranial abnormalities are identified. 3. Minimal findings paranasal sinuses. Report was given by phone to Dr. Kumar at 0945 hours. [facility]
== END 2018-08-05 10:27 | disposition home or self-care (01) ==
LOC: FB.ED 08:24
DX: G44.209 Tension-type headache, unspecified, not intractable (principal); K29.70 Gastritis, unspecified, without bleeding; J45.909 Unspecified asthma, uncomplicated; Z88.5 Allergy status to narcotic agent; Z91.030 Bee allergy status
CPT/HCPCS: 36415; 70450; 80048; 84484; 85025; 93005; 94640; 96372; 99284; A9270; J1170; J7620-GY

== ENCOUNTER 2018-09-09 12:15 | Emergency (ER) | payer BC ==
--- NOTE | 2018-09-09 12:43 | EDM.PDOCBH ---
ED HPI GENERAL MEDICAL PROBLEM - General Chief Complaint: Behavioral/Psych Stated Complaint: SUISIDAUL Time Seen by Provider: 09/09/18 12:15 Source of Information: Reports: Patient, Family History Limitations: Reports: No Limitations - History of Present Illness INITIAL COMMENTS - FREE TEXT/NARRATIVE: 43 y.o.w.f came with her SO because of suicidal ideation with a plan, which started a few days ago. Reason: is drinking daily and she has 4 grandchildren who are "stressing her out" well. No N/V/D no SOB, no CP, Pt denies any physical issues. BP BP 139/88 Pulse ox 100% on RA RR 18 Pulse 92 Temp 98. Onset Date: 09/07/18 Onset Time: 09:00 Duration: Day(s):, Getting Worse, Intermittent Location: Reports: Generalized Severity: Moderate Improves with: Reports: None Worsens with: Reports: None Context: Reports: Other (stress at home with drinking, 4 grans children) Associated Symptoms: Reports: No Other Symptoms - Related Data Allergies Allergy/AdvReac Type Severity Reaction Status Date / Time morphine Allergy Vomiting Verified 05/27/18 09:10 Penicillins Allergy Other Verified 05/27/18 09:10 tioconazole Allergy Other Verified 05/27/18 09:10 [From Monistat 1 (tioconazole)] venom-honey bee Allergy Airway Verified 05/27/18 09:10 [bee venom (honey bee)] Tightness Home Meds: Home Meds Aspirin [Children's Aspirin] 162 mg PO DAILY 01/04/14 [History] rOPINIRole HCl [Ropinirole HCl] 4 mg PO BEDTIME 01/04/14 [History] ALPRAZolam [Alprazolam] 0.5 mg PO DAILY PRN 11/11/15 [History] Furosemide 20 mg PO DAILY PRN 11/11/15 [History] Ondansetron [Zofran] 4 mg PO Q6H PRN 01/25/17 [History] metFORMIN [Glucophage] 500 mg PO BID 01/25/17 [History] Ketorolac [Toradol] 60 mg IM ASDIRECTED PRN 12/04/17 [History] Liraglutide [Victoza] 0.6 mg SQ DAILY 12/04/17 [History] Erenumab-Aooe [Aimovig Autoinjector] 140 mg IM Q30D 02/08/18 [History] Venlafaxine HCl [Venlafaxine ER] 37.5 mg PO BEDTIME 08/05/18 [History] Past Medical History HEENT History: Reports: Impaired Vision Respiratory History: Reports: Asthma Gastrointestinal History: Reports: Bowel Obstruction [employer]NAGER History: Reports: Musculoskeletal History: Reports: Arthritis, Other (See Below) Other Musculoskeletal History: arthritis bilat knees Neurological History: Reports: Cerebral Aneurysms, Migraines, TIA Other Neuro History: TIA x 2 Psychiatric History: Reports: Anxiety, Bipolar, Dementia, PTSD Endocrine/Metabolic History: Reports: Diabetes, Type II, Obesity/BMI 30+ Other Endocrine/Metabolic History: borderline diabetic Hematologic History: Reports: Other (See Below) Other Hematologic History: fibrinogen disorder, plasmongeic activator inhibitor Oncologic (Cancer) History: Reports: Cervix, Uterine, Other (See Below) Other Oncologic History: CA gallbladder Dermatologic History: Reports: Other (See Below) 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 Denies: Appendectomy Female Surgical History: Reports: Breast Reduction, Hysterectomy, Tubal Ligation Social & Family History - Family History Family Medical History: Unobtainable - Caffeine Use Caffeine Use: Reports: Coffee, Tea ED ROS GENERAL - Review of Systems Review Of Systems: See Below Constitutional: Reports: No Symptoms HEENT: Reports: No Symptoms Respiratory: Reports: No Symptoms Cardiovascular: Reports: No Symptoms Endocrine: Reports: No Symptoms GI/Abdominal: Reports: No Symptoms : Reports: No Symptoms Musculoskeletal: Reports: No Symptoms Skin: Reports: No Symptoms Neurological: Reports: No Symptoms Psychiatric: Reports: Depression, Suicidal Ideation Hematologic/Lymphatic: Reports: No Symptoms Immunologic: Reports: No Symptoms ED EXAM, BEHAVIORAL HEALTH - Physical Exam Exam: See Below Exam Limited By: No Limitations General Appearance: Alert, WD/WN, Mild Distress Eye Exam: Bilateral Eye: Normal Inspection Ears: Normal External Exam Nose: Normal Inspection, Normal Mucosa, No Blood Throat/Mouth: Normal Inspection, Normal Lips, Normal Voice, No Airway Compromise Head: Atraumatic, Normocephalic Neck: Normal Inspection, Supple, Non-Tender, Full Range of Motion Respiratory/Chest: No Respiratory Distress Cardiovascular: Normal Peripheral Pulses, Regular Rate, Rhythm, No Edema, No Gallop, No Rub GI/Abdominal: Normal Bowel Sounds, Soft, Non-Tender, No Organomegaly, No Distention (Female) Exam: Deferred Rectal (Female) Exam: Deferred Back Exam: Normal Inspection, Full Range of Motion Extremities: Normal Inspection, Normal Range of Motion, Normal Capillary Refill Neurological: Alert, Normal Mood/Affect, CN II-XII Intact, Normal Cognition, No Motor/Sensory Deficits, Oriented x 3 Psychiatric: Alert, Normal Affect, Oriented, Depressed Mood, Suicidal Plan ( wants to take pills) Skin Exam: Warm, Dry, Intact COURSE, BEHAVIORAL HEALTH COMP - Course Vital Signs: Last Vital Signs Temp 36.8 C 09/09/18 17:30 Pulse 97 09/09/18 17:30 Resp 16 09/09/18 17:30 BP 123/88 09/09/18 17:30 Pulse Ox 95 09/09/18 17:30 43 y.o.w.f came with her SO because of suicidal ideation with a plan, which started a few days ago. Reason: is drinking daily and she has 4 grandchildren who are "stressing her out" well. No N/V/D no SOB, no CP, Pt denies any physical issues. BP BP 139/88 Pulse ox 100% on RA RR 18 Pulse 92 Temp 98. PE: WNWD W F with suicidal ideation with a plan to take pills to harm herself Imaging: Not Indicated Labs: CBC, BMP Drug sceen , ETOH, TSH were all neg Impression: Suicidal ideation with a plan Tx: Non in the ED 2.35 pm Consultation: Jeanne from [facility]: Pt is a risk to harm herself and needs placement Reexam: Pt was stable in the ED Plan: Transfer to [facility] with family relative Orders, Labs, Meds: Laboratory Tests 09/09/18 09/09/18 09/09/18 Range/Units 12:46 12:55 12:55 WBC 8.2 (4.5-12.0) X10-3/uL RBC 4.77 (3.23-5.20) x10(6)uL Hgb 15.6 H (11.5-15.5) g/dL Hct 44.0 (30.0-51.3) % MCV 92.1 (80-96) fL MCH 32.8 (27.7-33.6) pg MCHC 35.6 H (32.2-35.4) g/dL RDW 12.6 (11.5-15.5) % Plt Count 214 (125-369) X10(3)uL MPV 7.5 (7.4-10.4) fL Neut % (Auto) 79.9 (46-82) % Lymph % (Auto) 15.2 (13-37) % Bartholomew % (Auto) 4.5 (4-12) % Eos % (Auto) 0 L (1.0-5.0) % Baso % (Auto) 0 (0-2) % Neut # (Auto) 6.6 (1.6-8.3) # Lymph # (Auto) 1.2 (0.6-5.0) # Bartholomew # (Auto) 0.4 (0.0-1.3) # Eos # (Auto) 0.0 (0.0-0.8) # Baso # (Auto) 0.0 (0.0-0.2) # Sodium 136 (135-145) mmol/L Potassium 3.8 (3.5-5.3) mmol/L Chloride 101 (100-110) mmol/L Carbon Dioxide 24 (21-32) mmol/L BUN 7 (7-18) mg/dL Creatinine 0.5 L (0.55-1.02) mg/dL Est Cr Clr Drug Dosing TNP Estimated GFR (MDRD) > 60 (>60) BUN/Creatinine Ratio 14.0 (9-20) Glucose 104 (80-116) mg/dL Calcium 9.0 (8.6-10.2) mg/dL TSH, Ultra Sensitive (0.36-3.74) IU/mL Salicylates 6.5 (<2.8) mg/dL Urine Opiates Screen Negative (NEGATIVE) Ur Oxycodone Screen Negative (NEGATIVE) Ur Propoxyphene Screen Negative (NEGATIVE) Acetaminophen < 2 L (<2) ug/mL Ur Barbituates Screen Negative (NEGATIVE) Ur Tricyclics Screen Negative (NEGATIVE) Ur Phencyclidine Scrn Negative (NEGATIVE) Ur Amphetamine Screen Negative (NEGATIVE) Urine MDMA Screen Negative (NEGATIVE) U Benzodiazepines Scrn Negative (NEGATIVE) U Cocaine Metab Screen Negative (NEGATIVE) U Marijuana (THC) Screen Negative (NEGATIVE) Ethyl Alcohol (<0.03) % 09/09/18 09/09/18 Range/Units 12:55 12:55 WBC (4.5-12.0) X10-3/uL RBC (3.23-5.20) x10(6)uL Hgb (11.5-15.5) g/dL Hct (30.0-51.3) % MCV (80-96) fL MCH (27.7-33.6) pg MCHC (32.2-35.4) g/dL RDW (11.5-15.5) % Plt Count (125-369) X10(3)uL MPV (7.4-10.4) fL Neut % (Auto) (46-82) % Lymph % (Auto) (13-37) % Bartholomew % (Auto) (4-12) % Eos % (Auto) (1.0-5.0) % Baso % (Auto) (0-2) % Neut # (Auto) (1.6-8.3) # Lymph # (Auto) (0.6-5.0) # Bartholomew # (Auto) (0.0-1.3) # Eos # (Auto) (0.0-0.8) # Baso # (Auto) (0.0-0.2) # Sodium (135-145) mmol/L Potassium (3.5-5.3) mmol/L Chloride (100-110) mmol/L Carbon Dioxide (21-32) mmol/L BUN (7-18) mg/dL Creatinine (0.55-1.02) mg/dL Est Cr Clr Drug Dosing Estimated GFR (MDRD) (>60) BUN/Creatinine Ratio (9-20) Glucose (80-116) mg/dL Calcium (8.6-10.2) mg/dL TSH, Ultra Sensitive 1.37 (0.36-3.74) IU/mL Salicylates (<2.8) mg/dL Urine Opiates Screen (NEGATIVE) Ur Oxycodone Screen (NEGATIVE) Ur Propoxyphene Screen (NEGATIVE) Acetaminophen (<2) ug/mL Ur Barbituates Screen (NEGATIVE) Ur Tricyclics Screen (NEGATIVE) Ur Phencyclidine Scrn (NEGATIVE) Ur Amphetamine Screen (NEGATIVE) Urine MDMA Screen (NEGATIVE) U Benzodiazepines Scrn (NEGATIVE) U Cocaine Metab Screen (NEGATIVE) U Marijuana (THC) Screen (NEGATIVE) Ethyl Alcohol < 0.03 (<0.03) % Departure - Departure Time of Disposition: 17:08 Disposition: DC/Tfer to Psych Hosp/Unit 65 Condition: Good Clinical Impression: Suicidal ideation - Discharge Information Referrals: Jessica Steel NP [Primary Care Provider] - Forms: ED Department Discharge Additional Instructions: Your daughter will bring you directly to [facility] [place] for admission.
[2018-09-09 13:31] LABS: ACETAMINOPHEN < 2 ug/mL (<2)
[2018-09-09 20:40] VITALS: BP 123/88
== END 2018-09-09 17:30 ==
LOC: FB.ED 12:15
DX: R45.851 Suicidal ideations (principal); E11.9 Type 2 diabetes mellitus without complications; F31.9 Bipolar disorder, unspecified; F41.9 Anxiety disorder, unspecified; Z79.82 Long term (current) use of aspirin; Z79.899 Other long term (current) drug therapy; Z91.030 Bee allergy status; Z88.5 Allergy status to narcotic agent; Z88.0 Allergy status to penicillin; Z88.8 Allergy status to other drugs, medicaments and biological substances
CPT/HCPCS: 36415; 80048; 80305-QW; 84443; 85025; 99285; G0480

== ENCOUNTER 2019-02-20 16:37 | Emergency (ER) | payer BC ==
[2019-02-20] MEDS ORDERED: Acetaminophen/HYDROcodone 325-5 MG Tab PO ONE (16:38)
[2019-02-20] MEDS ORDERED: Sodium Chloride 0.9% 1,000 ML IV SCH ×2 (17:30→19:15)
[2019-02-20] MEDS ORDERED: Diatrizoate Meglumine/Diatrizoate Sodium 37% 30 ML Bottle PO ONE (17:48)
[2019-02-20] MEDS ORDERED: Iopamidol 755 Mg/ML 100 ML Bottle IV ONE (17:48)
[2019-02-20] MEDS ORDERED: cefTRIAXone 2 GM in Sodium Chloride 0.9% 50 ML IV ONE (19:14)
[2019-02-20] MEDS ORDERED: Fluconazole 150 MG Tab PO ONE (19:20)
[2019-02-20] MEDS ORDERED: Lactated Ringers 1,000 ML IV SCH (19:30)
[2019-02-20 19:52] VITALS: BP 124/59; PULSE 102
[2019-02-20] MEDS ORDERED: Fluconazole 100 MG Tab PO ONE (19:54)
[2019-02-20] MEDS ORDERED: Acetaminophen 500 MG Tab PO ONE (19:56)
[2019-02-20] MEDS ORDERED: Ketorolac 30 MG/ML SDV IVPUSH ONE (19:56)
--- NOTE | 2019-02-20 20:06 | EDM.PDOC ---
ED HPI GENERAL MEDICAL PROBLEM - General Chief Complaint: Abdominal Pain Stated Complaint: SENT FROM CLINIC Time Seen by Provider: 02/20/19 16:40 Source of Information: Reports: Patient, Family History Limitations: Reports: No Limitations - History of Present Illness INITIAL COMMENTS - FREE TEXT/NARRATIVE: c/o abd pain pt went to walk-in who sent her here for 24h she has had redness of her lower abd with inc'd pain and temp 101/102 no dysuria, has had incontinence of urine 10% of the time in the past 2w has had multiple abd surgeries: choly, hys, bladder repair, ventral/inguinal hernia repair x 14 reports h/o cervical and uterine CA, not on surveillance, does not get paps CT abd/pelvis with IV/PO contrast shows 9 x 3 x 3 cm subc abscess seen by Dr Abebe who arranged percutaneous drainage with IR at [facility], Dr Abebe spoke with the on-call IR physician CT does not show extension of abscess or fistula cellulitis present given 2 gm ceftriaxone here, pt denies true allergy to PCN, says PCN give her oral thrush topical tioconazole has "caused me to swell up", is able to take fluconazole and given a dose here for moderate yeast in her urine pt has been ambulating, conversant, has had some pain but does not appear ill declined MS here d/t possible allergy in the past, says she can take HC/APAP Lower abdomen Pain Score (Numeric/FACES): 10 - Related Data Allergies Allergy/AdvReac Type Severity Reaction Status Date / Time morphine Allergy Vomiting Verified 02/20/19 17:49 Penicillins Allergy Other Verified 02/20/19 17:49 tioconazole Allergy Other Verified 02/20/19 17:49 [From Monistat 1 (tioconazole)] venom-honey bee Allergy Airway Verified 02/20/19 17:49 [bee venom (honey bee)] Tightness Home Meds: Home Meds Aspirin [Children's Aspirin] 162 mg PO DAILY 01/04/14 [History] rOPINIRole HCl [Ropinirole HCl] 4 mg PO BEDTIME 01/04/14 [History] ALPRAZolam [Alprazolam] 0.5 mg PO DAILY PRN 11/11/15 [History] Furosemide 20 mg PO DAILY PRN 11/11/15 [History] Ondansetron [Zofran] 4 mg PO Q6H PRN 01/25/17 [History] metFORMIN [Glucophage] 500 mg PO BID 01/25/17 [History] Ketorolac [Toradol] 60 mg IM ASDIRECTED PRN 12/04/17 [History] Liraglutide [Victoza] 0.6 mg SQ DAILY 12/04/17 [History] Erenumab-Aooe [Aimovig Autoinjector] 140 mg IM Q30D 02/08/18 [History] Venlafaxine HCl [Venlafaxine ER] 150 mg PO BEDTIME 08/05/18 [History] Fluconazole 150 mg PO ASDIRECTED #4 tablet 02/20/19 [Rx] Gabapentin [Neurontin] 300 mg PO BEDTIME 02/20/19 [History] Past Medical History HEENT History: Reports: Impaired Vision Respiratory History: Reports: Asthma Gastrointestinal History: Reports: Bowel Obstruction, Gastritis Genitourinary History: Reports: Urinary Incontinence, Other (See Below) Other Genitourinary History: prolapsed bladder WARP HAULER History: Reports: Other WARP HAULER History: G7 Musculoskeletal History: Reports: Arthritis, Fracture, Other (See Below) Other Musculoskeletal History: arthritis bilat knees, hx fx R elbow Neurological History: Reports: Cerebral Aneurysms, Concussion, Migraines, TIA Other Neuro History: TIA x 2 Psychiatric History: Reports: Anxiety, Bipolar, Dementia, Psych Hospitalization( s), PTSD, Suicide Attempt Endocrine/Metabolic History: Reports: Diabetes, Type II, Obesity/BMI 30+ Other Endocrine/Metabolic History: borderline diabetic Hematologic History: Reports: Bleeding Disorder, Other (See Below) Other Hematologic History: fibrinogen disorder, plasmongeic activator inhibitor Oncologic (Cancer) History: Reports: Cervix, Uterine, Other (See Below) Other Oncologic History: CA gallbladder Dermatologic History: Reports: Other (See Below) Other Dermatologic History: 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 - Infectious Disease History Infectious Disease History: Reports: Chicken Pox, Influenza, Shingles - Past Surgical History HEENT Surgical History: Reports: Oral Surgery, Tonsillectomy GI Surgical History: Reports: Cholecystectomy, Hernia Repair/Other Other GI Surgeries/Procedures: hernia repair x 14 Female Surgical History: Reports: Breast Reduction, Hysterectomy, Tubal Ligation, Other (See Below) Other Female Surgeries/Procedures: prolapsed bladder repair x 2 Musculoskeletal Surgical History: Reports: None Social & Family History - Family History Family Medical History: Unobtainable - Tobacco Use Smoking Status *Q: Current Every Day Smoker Years of Tobacco use: 30 Packs/Tins Daily: 0.5 - Caffeine Use Caffeine Use: Reports: Coffee, Soda - Recreational Drug Use Recreational Drug Use: No ED ROS GENERAL - Review of Systems Review Of Systems: See Below Constitutional: Reports: Fever HEENT: Reports: No Symptoms Respiratory: Reports: No Symptoms Cardiovascular: Reports: No Symptoms Endocrine: Reports: No Symptoms GI/Abdominal: Reports: Abdominal Pain : Reports: No Symptoms Musculoskeletal: Reports: No Symptoms Skin: Reports: Change in Color Neurological: Reports: No Symptoms Psychiatric: Reports: No Symptoms Hematologic/Lymphatic: Reports: No Symptoms Immunologic: Reports: No Symptoms ED EXAM, GENERAL - Physical Exam Exam: See Below Exam Limited By: No Limitations General Appearance: Alert, WD/WN, No Apparent Distress Nose: Normal Inspection Throat/Mouth: Normal Inspection Head: Atraumatic Neck: Normal Inspection, Supple, Non-Tender, Full Range of Motion Respiratory/Chest: No Respiratory Distress, Lungs Clear Cardiovascular: Regular Rate, Rhythm GI/Abdominal: Normal Bowel Sounds, Other (large old vertical scar in mid abd as well as vertical scar, 39 x 26 cm red tender area of lower 1/3rd of abd, symmetric, indurated, no definite flocculence altho difficult to determine given tenderness and induration, no CVAT b/l, no break in skin or d/c) Back Exam: Normal Inspection, Full Range of Motion. No: CVA Tenderness (R), CVA Tenderness (L) Extremities: Normal Inspection, Normal Range of Motion, Non-Tender, No Pedal Edema Neurological: Alert, Oriented, CN II-XII Intact, Normal Cognition, Normal Gait, No Motor/Sensory Deficits Psychiatric: Normal Affect, Normal Mood Skin Exam: Warm, Dry, Intact Lymphatic: No Adenopathy Course - Vital Signs Last Recorded V/S: Last Vital Signs Temp 37.6 C 02/20/19 19:50 Pulse 102 H 02/20/19 19:50 Resp 20 02/20/19 19:50 BP 124/59 L 02/20/19 19:50 Pulse Ox 99 02/20/19 19:50 - Orders/Labs/Meds Orders: Active Orders 24 hr Category Date Time Status Abdomen Pelvis w Cont [CT] Stat Exams 02/20/19 17:27 Taken CULTURE BLOOD [BC] Stat Lab 02/20/19 17:40 Received CULTURE URINE [RM] Stat Lab 02/20/19 18:51 Ordered Lactated Ringers [Ringers, Lactated] 1,000 ml Med 02/20/19 19:30 Ordered IV ASDIRECTED Sodium Chloride 0.9% [Normal Saline] 1,000 ml Med 02/20/19 17:30 Active IV ASDIRECTED Medication Orders Sodium Chloride (Normal Saline) 1,000 mls @ 999 mls/hr IV ASDIRECTED SELMA Last Admin: 02/20/19 18:14 Dose: 999 mls/hr Lactated Ringer's (Ringers, Lactated) 1,000 mls @ 999 mls/hr IV ASDIRECTED SELMA Last Admin: 02/20/19 19:24 Dose: 999 mls/hr Labs: Laboratory Tests 02/20/19 02/20/19 02/20/19 Range/Units 17:45 17:45 17:45 WBC 12.1 H (4.5-12.0) X10-3/uL RBC 4.77 (3.23-5.20) x10(6)uL Hgb 15.3 (11.5-15.5) g/dL Hct 44.0 (30.0-51.3) % MCV 92.2 (80-96) fL MCH 32.1 (27.7-33.6) pg MCHC 34.8 (32.2-35.4) g/dL RDW 12.4 (11.5-15.5) % Plt Count 251 (125-369) X10(3)uL MPV 7.3 L (7.4-10.4) fL Neut % (Auto) 82.9 H (46-82) % Lymph % (Auto) 12.1 L (13-37) % Pickett % (Auto) 4.7 (4-12) % Eos % (Auto) 0 L (1.0-5.0) % Baso % (Auto) 0 (0-2) % Neut # (Auto) 10.0 H (1.6-8.3) # Lymph # (Auto) 1.5 (0.6-5.0) # Pickett # (Auto) 0.6 (0.0-1.3) # Eos # (Auto) 0.0 (0.0-0.8) # Baso # (Auto) 0.0 (0.0-0.2) # Sodium 136 (135-145) mmol/L Potassium 4.2 (3.5-5.3) mmol/L Chloride 100 (100-110) mmol/L Carbon Dioxide 26 (21-32) mmol/L BUN 7 (7-18) mg/dL Creatinine 0.7 (0.55-1.02) mg/dL Est Cr Clr Drug Dosing 91.32 mL/min Estimated GFR (MDRD) > 60 (>60) BUN/Creatinine Ratio 10.0 (9-20) Glucose 284 H D (80-116) mg/dL Lactic Acid (0.4-2.2) mmol/L Calcium 9.1 (8.6-10.2) mg/dL Total Bilirubin 0.8 (0.1-1.3) mg/dL AST 10 D (5-25) IU/L ALT 18 D (12-36) U/L Alkaline Phosphatase 91 (56-112) IU/L Total Protein 6.9 (6.0-8.0) g/dL Albumin 3.3 L (3.5-5.2) g/dL Globulin 3.6 g/dL Albumin/Globulin Ratio 0.9 Lipase 51 L (73-393) U/L Urine Color (YELLOW) Urine Appearance (CLEAR) Urine pH (5.0-6.5) Ur Specific Og[place] (1.010-1.025) Urine Protein (NEGATIVE) mg/dL Urine Glucose (UA) (NORMAL) mg/dL Urine Ketones (NEGATIVE) mg/dL Urine Occult Blood (NEGATIVE) Urine Nitrite (NEGATIVE) Urine Bilirubin (NEGATIVE) Urine Urobilinogen (NEGATIVE) mg/dL Ur Leukocyte Esterase (NEGATIVE) Urine RBC (0-5) Urine WBC (0-5) Ur Squamous Epith Cells (NS,R,O) Urine Bacteria (NS) Urine Mucus (NS) Urine Yeast (NS) 02/20/19 02/20/19 Range/Units 17:45 18:30 WBC (4.5-12.0) X10-3/uL RBC (3.23-5.20) x10(6)uL Hgb (11.5-15.5) g/dL Hct (30.0-51.3) % MCV (80-96) fL MCH (27.7-33.6) pg MCHC (32.2-35.4) g/dL RDW (11.5-15.5) % Plt Count (125-369) X10(3)uL MPV (7.4-10.4) fL Neut % (Auto) (46-82) % Lymph % (Auto) (13-37) % Pickett % (Auto) (4-12) % Eos % (Auto) (1.0-5.0) % Baso % (Auto) (0-2) % Neut # (Auto) (1.6-8.3) # Lymph # (Auto) (0.6-5.0) # Pickett # (Auto) (0.0-1.3) # Eos # (Auto) (0.0-0.8) # Baso # (Auto) (0.0-0.2) # Sodium (135-145) mmol/L Potassium (3.5-5.3) mmol/L Chloride (100-110) mmol/L Carbon Dioxide (21-32) mmol/L BUN (7-18) mg/dL Creatinine (0.55-1.02) mg/dL Est Cr Clr Drug Dosing mL/min Estimated GFR (MDRD) (>60) BUN/Creatinine Ratio (9-20) Glucose (80-116) mg/dL Lactic Acid 1.3 (0.4-2.2) mmol/L Calcium (8.6-10.2) mg/dL Total Bilirubin (0.1-1.3) mg/dL AST (5-25) IU/L ALT (12-36) U/L Alkaline Phosphatase (56-112) IU/L Total Protein (6.0-8.0) g/dL Albumin (3.5-5.2) g/dL Globulin g/dL Albumin/Globulin Ratio Lipase (73-393) U/L Urine Color Yellow (YELLOW) Urine Appearance Slightly cloudy (CLEAR) Urine pH 5.0 (5.0-6.5) Ur Specific [place] 1.020 (1.010-1.025) Urine Protein 30 H (NEGATIVE) mg/dL Urine Glucose (UA) >1000 H (NORMAL) mg/dL Urine Ketones 15 H (NEGATIVE) mg/dL Urine Occult Blood Negative (NEGATIVE) Urine Nitrite Positive H (NEGATIVE) Urine Bilirubin Small H (NEGATIVE) Urine Urobilinogen 1 H (NEGATIVE) mg/dL Ur Leukocyte Esterase Small H (NEGATIVE) Urine RBC 0-5 (0-5) Urine WBC 0-5 (0-5) Ur Squamous Epith Cells Occasional (NS,R,O) Urine Bacteria Few H (NS) Urine Mucus Moderate H (NS) Urine Yeast Moderate H (NS) Meds: Medications Generic Name Dose Route Start Last Admin Trade Name Freq PRN Reason Stop Dose Admin Sodium Chloride 1,000 mls @ 999 mls/hr 02/20/19 17:30 02/20/19 18:14 Normal Saline IV 999 mls/hr ASDIRECTED SELMA Administration Lactated Ringer's 1,000 mls @ 999 mls/hr 02/20/19 19:30 02/20/19 19:24 Ringers, Lactated IV 999 mls/hr ASDIRECTED SELMA Administration Discontinued Medications Generic Name Dose Route Start Last Admin Trade Name Freq PRN Reason Stop Dose Admin Acetaminophen 1,000 mg 02/20/19 19:56 Tylenol Extra Strength PO 02/20/19 19:57 ONETIME ONE Diatrizoate Meglum/Diatrizoate Sod 30 ml 02/20/19 17:48 02/20/19 18:40 Gastrografin 37% PO 02/20/19 17:49 30 ml . DIRECTED ONE Administration Fluconazole 150 mg 02/20/19 19:20 02/20/19 19:55 Diflucan PO 02/20/19 19:21 Not Given ONETIME ONE Fluconazole 150 mg 02/20/19 19:54 02/20/19 19:55 Diflucan PO 02/20/19 19:55 150 mg ONETIME ONE Administration Sodium Chloride 1,000 mls @ 999 mls/hr 02/20/19 19:15 Normal Saline IV ASDIRECTED SELMA Ceftriaxone Sodium 2 gm/ 50 mls @ 200 mls/hr 02/20/19 19:14 02/20/19 19:25 Sodium Chloride IV 02/20/19 19:28 200 mls/hr ONETIME ONE Administration Iopamidol 100 ml 02/20/19 17:48 02/20/19 18:40 Isovue-370 (76%) IV 02/20/19 17:49 100 ml . DIRECTED ONE Administration Ketorolac Tromethamine 30 mg 02/20/19 19:56 Toradol IVPUSH 02/20/19 19:57 ONETIME ONE Departure - Departure Time of Disposition: 20:08 Disposition: Home, Self-Care 01 Condition: Good Clinical Impression: Abscess of abdominal wall, Cellulitis of abdominal wall, Yeast cystitis - Discharge Information *PRESCRIPTION DRUG MONITORING PROGRAM REVIEWED*: Not Applicable *COPY OF PRESCRIPTION DRUG MONITORING REPORT IN PATIENT SIRISHA: Not Applicable Prescriptions: Fluconazole 150 mg PO ASDIRECTED #4 tablet Instructions: Skin Abscess, Percutaneous Abscess Drain, Percutaneous Abscess Drain, Care After, Vaginal Yeast Infection, Adult Referrals: Jessica Steel RN RESEARCH [Primary Care Provider] - Additional Instructions: Nothing to eat or drink after midnight although you may take meds with a small sip of fluids. For infection, take Augmentin 875/125 mg 1 tab at 7 AM tomorrow. For pain, take ibuprofen 200 mg 3 tabs and acetaminophen 325 mg 2 tabs every 6 hours. For pain, take hydrocodone with acetaminophen 5/325 mg 1 tab every 6 hours as needed. For yeast infection, take fluconazole 150 mg 1 tab 2 times a week for 2 weeks. Call interventional radiology at the [facility] in [place] at 7 AM tomorrow. They provided 3 phone numbers: [phone], , (which is the triage nurse at [facility]). If you have difficulty making contact with the time and place for the percutaneous drainage of the abdominal wall abscess, call the ED here at [facility] for assistance. - My Orders Last 24 Hours: My Active Orders 02/20/19 17:27 Abdomen Pelvis w Cont [CT] Stat 02/20/19 17:30 Sodium Chloride 0.9% [Normal Saline] 1,000 ml IV ASDIRECTED 02/20/19 17:40 CULTURE BLOOD [BC] Stat 02/20/19 18:51 CULTURE URINE [RM] Stat 02/20/19 19:30 Lactated Ringers [Ringers, Lactated] 1,000 ml IV ASDIRECTED - Assessment/Plan Last 24 Hours: My Active Orders 02/20/19 17:27 Abdomen Pelvis w Cont [CT] Stat 02/20/19 17:30 Sodium Chloride 0.9% [Normal Saline] 1,000 ml IV ASDIRECTED 02/20/19 17:40 CULTURE BLOOD [BC] Stat 02/20/19 18:51 CULTURE URINE [RM] Stat 02/20/19 19:30 Lactated Ringers [Ringers, Lactated] 1,000 ml IV ASDIRECTED
[2019-02-20] MEDS ORDERED: Amoxicillin/Clavulanate K 875-125 MG Tab PO ONE (20:07)
[2019-02-20] MEDS ORDERED: Amoxicillin/Clavulanate K 875-125 MG Tab ONE (20:11)
--- NOTE | 2019-02-20 22:35 | ER ---
DATE SEEN: 02/20/2019 HISTORY: This 43-year-old female was seen in the emergency room at the request of Dr. Felix for evaluation of abdominal wall cellulitis and abscess. The patient has a long history of multiple recurrent abdominal hernia repairs with mesh. For the last few days, she has been developing some redness on her right lower abdominal wall pannus. This is localized below the incision from her previous abdominoplasty. CT scan was obtained and does show a 3 x 3 x 9 cm subcutaneous abscess. Her temperature is 99.2 and repeated at 99.4. White count is 12. She does not appear ill. She is walking without difficulty and sitting and in no distress currently. Physical exam reveals a pleasant lady, who moves around without difficulty. IV is in place. She has received IV Rocephin. Her abdomen is soft with localized cellulitis and firmness in the right lower pannus region. This corresponds with an abscess beneath. ASSESSMENT: Abdominal wall abscess and cellulitis. PLAN: I spoke with Dr. Keyes in the emergency room in [place] and subsequently Dr. Germain from [facility]. She will call 1st thing in the morning and get scheduled for a percutaneous drainage of the abdominal wall abscess. 45 minutes was spent with the patient in the emergency room [place]. /[id number] JADA/TERRELL MTDD
== END 2019-02-20 20:30 | disposition home or self-care (01) ==
LOC: FB.ED 16:37
DX: L02.211 Cutaneous abscess of abdominal wall (principal); L03.311 Cellulitis of abdominal wall
CPT/HCPCS: 36415; 74177; 80053; 81001; 83605; 83690; 85025; 87040; 87086; 87088; 87186; 96361; 96374; 96375; 99284; A9270; J0696; J1885; J7030; J7050; J7120; Q9963; Q9967